=== PATIENT | female | born 1950 ===

== ENCOUNTER → 2025-06-02 | Outpatient (REF) | payer OTHER ==
[2025-06-02 17:21] LABS: APPEARANCE, URINE MANUAL CLOUDY (CLEAR); COLOR, URINE MANUAL ORANGE (YELLOW)
[2025-06-02 17:22] LABS: BILIRUBIN, URINE MANUAL OBSCURED (NEGATIVE); BLOOD URINE MANUAL POSITIVE (NEGATIVE); GLUCOSE, URINE (UA) MANUAL OBSCURED mg/dL (NEGATIVE); KETONE, URINE MANUAL OBSCURED mg/dL (NEGATIVE); LEUKOCYTE ESTERASE, URINE MAN POSITIVE (NEGATIVE); NITRITE, URINE MANUAL OBSCURED (NEGATIVE); PH,URINE MAN 5.0 UNITS (5.0 - 7.0); PROTEIN, URINE MANUAL OBSCURED mg/dL (NEGATIVE); SPECIFIC GRAVITY,URINE MANUAL 1.020 (1.002-1.035); UROBILINOGEN, URINE MANUAL OBSCURED mg/dl (NORMAL)
[2025-06-02 17:23] LABS: BACTERIA, URINE SMALL AMOUNT; HYALINE CAST, URINE NONE SEEN /lpf (0-1); MUCUS, URINE LARGE AMOUNT (NEGATIVE); SQUAMOUS EPITHELIAL CELL URINE MOD AMOUNT /hpf (SMALL AMT); WBC, URINE TNTC /hpf (0-3)
== END ==
LOC: M LAB REF 16:26
PROVIDERS: ATTEND Physician Assistant Medical
DX: N39.0 Urinary tract infection, site not specified (principal)